=== PATIENT | male | born 1985 | race Two or more races ===

== ENCOUNTER 2023-04-20 01:44 | Emergency (ER) | payer MEDICAID, SELFPAY ==
--- NOTE | ~2023-04-20 | XR_ITS ---
EXAMINATION: XR CHEST CLINICAL INFORMATION: Pain. COMPARISON: None available. TECHNIQUE: Frontal view of the chest was obtained. FINDINGS: The cardiomediastinal silhouette is normal. There is no focal lung consolidation or pleural effusion. The bony structures and soft tissues are unremarkable. XR/XR chest 1V IMPRESSION: No active cardiopulmonary disease.
--- NOTE | 2023-04-20 01:45 | ECG_ITS ---
Test Reason : chest pain after using cocine Blood Pressure : / mmHG Vent. Rate : 104 BPM Atrial Rate : 104 BPM P-R Int : 160 ms QRS Dur : 078 ms QT Int : 346 ms P-R-T Axes : 082 080 048 degrees QTc Int : 454 ms Sinus tachycardia Possible Left atrial enlargement Borderline ECG No previous ECGs available Referred By: Generic ED Physician Electronically Signed By:LINDA BORJA
[2023-04-20 01:52] VITALS: BP 136/89; PULSE 102; RESP 18; TEMP 36.7; O2SAT 98; BMI 25.8
--- NOTE | 2023-04-20 02:27 | ED.CHESTPAIN ---
HPI - Chest Pain General Chief Complaint: Chest Pain Stated Complaint: CP after using Time Seen by Provider: 04/20/23 02:12 Source: patient and family Mode of arrival: ambulatory Limitations: no limitations History of Present Illness HPI narrative: 37 yo male no PMH started with L sided chest heaviness after sniffing cocaine - feels anxious mildy shortness of breath. Willard normal prior to this event. Has no known heart disease or issues. MD complaint: chest pain Onset (ago): hour(s) (1.5) Timing of current episode: constant Prior episodes: Yes Onset: during rest Pain location: left chest Pain radiation: none Severity: mild Quality: heaviness Relieving factors: nothing Exacerbating factors: other (cocaine use) Context: other (sniffed cocaine) Associated symptoms: dyspnea Treatment prior to arrival: none Related Data Allergies Allergy/AdvReac Type Severity Reaction Status Date / Time No Known Allergies Allergy Verified 04/20/23 01:51 Review of Systems Review of Systems: Constitutional : No Weight loss, No Fever, No Chills ENT/Mouth : No sore throat, No Rhinorrhea Eyes: No Eye Pain, No Swelling Cardiovascular : pos Chest Pain, pos SOB, no Dyspnea on Exertion, No Orthopnea, No Edema, No Palpitations Respiratory : No Cough, No Sputum Gastrointestinal : no Nausea, No Vomiting, No Diarrhea, No abdominal Pain, No Hematochezia, No Melena Genitourinary : No Dysuria, No Urinary Frequency Musculoskeletal : No joint pain, No Myalgias, No Joint Swelling Skin : No Skin Lesions, No rash Neuro : No Weakness, No Numbness, No Dizziness, No Headache Psych : pos Anxiety/Panic, No Depression All other systems reviewed and are negative [facility] Past Medical History Attestation statement: The following information was validated with the patient. Source: old records reviewed Medical History No pertinent past medical history Social History Social History Alcohol intake: current Alcohol intake frequency: holidays/special occasions only Smoked in Last 30 Days: Yes Use of substances other than those prescribed or required for medical reasons: Yes Substance Use Type: Crack/Cocaine Advance Directives: No Advance Directives Information Provided: No Physical Exam Vital Signs: Vital Signs: Last Vital Signs Temp 98.4 F 04/20/23 04:00 Pulse 75 04/20/23 04:00 Resp 16 04/20/23 04:00 BP 112/58 L 04/20/23 04:00 Pulse Ox 98 04/20/23 04:00 O2 Del Method Room Air 04/20/23 04:00 BMI result Body Mass Index 25.8 Appearance: Alert. Oriented X3. No acute distress. Eyes: Pupils equal, round and reactive to light. ENT: Pharynx normal. Neck: Normal inspection. Neck supple. CVS: Normal heart rate and rhythm. Pulses normal. Respiratory: No respiratory distress. Breath sounds normal. Abdomen: Soft and nontender. Skin: Skin warm and dry. Normal skin color. Normal skin turgor. Extremities: No lower extremity edema. No calf ttp Neuro: Oriented X 3. No motor deficit. No sensory deficit. Medications Administered Discontinued Medications Generic Name Dose Route Start Last Admin Trade Name Freq PRN Reason Stop Dose Admin Aspirin 162 mg 04/20/23 02:12 04/20/23 02:38 Aspirin 81 Mg Tab.Chew PO 04/20/23 02:13 162 mg ONCE ONE Administration Lorazepam 1 mg 04/20/23 02:12 04/20/23 02:38 Lorazepam 1 Mg Tablet PO 04/20/23 02:13 1 mg ONCE ONE Administration Medical Decision Making Medical Decision Making [facility] Narrative: 37 yo male with chest pain after sniffing cocaine he has no ACS risk factors he is not toxic appearing distal pulses intact and it does not go to chest doubt dissection. At this time will need labs, troponin x 2, CXR, PO ativan and aspirin. If negative stable for DC. He is aware he should stop using cocaine. Differential Diagnosis Differential Diagnoses: The differential diagnosis associated with the presentation includes chest pain, bronchospasm, MSK pain, coronary vasospasm Admission/Observation Consideration of admission/observation: Escalation of care including admission/observation considered EKG nonischemic trop flat x 2 stable for DC Lab Data [facility] Lab Attestation statement: I reviewed the patient's lab results. 04/20/23 02:28 04/20/23 02:28 Labs: Lab Results 04/20/23 04/20/23 Range/Units 02:28 04:08 WBC 11.6 H (4.8-10.8) X10*3/uL RBC 5.02 (4.60-5.80) X10*6/uL Hgb 15.0 (14.0-18.0) g/dl Hct 43.9 (42.0-52.0) % MCV 87.5 (80.0-98.0) fL MCH 29.9 (27.0-33.0) pg MCHC 34.2 (31.0-36.0) g/dl RDW 11.9 (11.0-16.0) % Plt Count 234 (160-400) X10*3/uL MPV 9.1 L (9.4-12.4) fL Immature Gran % (Auto) 0.2 (0.0-0.4) % Neut % (Auto) 70.3 (45-73) % Lymph % (Auto) 23.6 (20-40) % Murray % (Auto) 5.2 (2-11) % Eos % (Auto) 0.3 (0-4) % Baso % (Auto) 0.4 (0-2) % Lymph # (Auto) 2.7 (1.2-4.9) X10*3/uL Murray # (Auto) 0.6 (0.1-1.2) X10*3/uL Eos # (Auto) 0.0 (0.0-0.4) X10*3/uL Baso # (Auto) 0.1 (0.0-0.2) X10*3/uL Abs Immat Gran (auto) 0.02 (0.00-0.03) X10*3/uL Absolute Neuts (auto) 8.2 (2.0-8.3) x10*3/uL Absolute Nucleated RBC 0.000 (0.0-0.012) X10*3/uL Nucleated RBC % (auto) 0.0 (0.0-0.2) /100WBC Sodium 143 (135-145) mmol/L Potassium 3.9 (3.3-5.1) mmol/L Chloride 111 H (96-108) mmol/L Carbon Dioxide 21 L (22-29) mmol/L Anion Gap 15 (12-20) BUN 9 (9-16) mg/dL Creatinine 1.08 (0.5-1.4) mg/dL Estim Creat Clear Calc 98.5 Estimated GFR > 60 Random Glucose 106 (60-115) mg/dL Calcium 10.0 (8.4-10.2) mg/dL Total Bilirubin 0.7 (0.0-1.0) mg/dL AST 23 (5-37) U/L ALT 21 (0-40) U/L Alkaline Phosphatase 51 (39-117) U/L Troponin I High Sens < 2.7 < 2.7 (<3.5-35.0) ng/L Total Protein 7.8 (6.5-8.0) g/dL Albumin 4.3 (3.5-5.0) g/dL Independent Interpretation I performed an independent interpretation of an: EKG and Plain X-Ray (normal ) Interpretation: Rate: 104 Rhythm: sinus tachycardia [place]: normal Normal P waves. Normal AMY. Normal QRS complex. ST T wave : normal no CALVIN qTC: normal prior studies: no acute ischemia The study has been interpreted contemporaneously by me. . Radiology Impression Discussion of test interpretation with radiology: I have reviewed the radiologist's reading. Independent Historian Clinical information obtained from an independent historian. History obtained from or confirmed by: Spouse Discharge Plan Discharge Clinical Impression: Atypical chest pain, Cocaine abuse Patient Disposition: Home, Self-Care Instructions: Chest Pain (ED), Cocaine Abuse (ED) Additional Instructions: return for worsening pain, dyspnea, fainting, fevers or any other concerns. stop using cocaine it can cause heart attacks, strokes, heart failure and other medical issues. Stand Alone Forms: Work/School Release
[2023-04-20 02:31] LABS: MANUAL DIFF FLAG NO
[2023-04-20 02:33] LABS: Basophils Absolute Auto 0.1 X10*3/uL (0.0-0.2); Basophils Percent Auto 0.4 % (0-2); Eosinophils Percent Auto 0.3 % (0-4); Hematocrit 43.9 % (42.0-52.0); Imm Gran Abs Auto 0.02 X10*3/uL (0.00-0.03); Imm Gran Pct Auto 0.2 % (0.0-0.4); Lymphocytes Absolute Auto 2.7 X10*3/uL (1.2-4.9); Lymphocytes Percent Auto 23.6 % (20-40); Mean Corpuscular HGB Conc 34.2 g/dl (31.0-36.0); Mean Corpuscular Hemoglobin 29.9 pg (27.0-33.0); Mean Corpuscular Volume 87.5 fL (80.0-98.0); Mean Platelet Volume 9.1 fL (9.4-12.4); Monocytes Absolute Auto 0.6 X10*3/uL (0.1-1.2); Monocytes Percent Auto 5.2 % (2-11); Neutrophils Absolute Auto 8.2 x10*3/uL (2.0-8.3); Neutrophils Percent Auto 70.3 % (45-73); Platelet Count 234 X10*3/uL (160-400); Red Blood Count 5.02 X10*6/uL (4.60-5.80); Red Cell Distribution Width 11.9 % (11.0-16.0); White Blood Count 11.6 X10*3/uL (4.8-10.8)
[2023-04-20] MEDS: LORazepam 1 MG TABLET PO (02:38)
[2023-04-20] MEDS: Aspirin 81 MG TAB.CHEW 162 MG PO (02:38)
[2023-04-20 02:54] LABS: Alanine Aminotransferase 21 U/L (0-40); Albumin Level 4.3 g/dL (3.5-5.0); Alkaline Phosphatase 51 U/L (39-117); Anion Gap 15 (12-20); Aspartate Amino Transferase 23 U/L (5-37); Bilirubin Total 0.7 mg/dL (0.0-1.0); Blood Urea Nitrogen 9 mg/dL (9-16); Carbon Dioxide 21 mmol/L (22-29); Chloride 111 mmol/L (96-108); Creatinine Clr Calc Pharmacy 98.5; Estimated Glomerular Filt Rate > 60; Glucose Random 106 mg/dL (60-115); Potassium 3.9 mmol/L (3.3-5.1); Sodium 143 mmol/L (135-145); Total Protein 7.8 g/dL (6.5-8.0); Troponin-I High Sensitivity < 2.7 ng/L (<3.5-35.0)
--- NOTE | 2023-04-20 03:26 | PC.NURSE ---
Pt ambulated independently from W/R with steady gait. Pt A&Ox4, reports 5/10 constant left sided CP, non radiating, states it feels like squeezing after more then usual cocaine use at 2340 last night. Pt placed on bedside monitor, labs collected and sent to lab. Pt aware of plan.
[2023-04-20 04:00] VITALS: BP 112/58; PULSE 75; RESP 16; TEMP 36.9; O2SAT 98
[2023-04-20 04:32] LABS: Troponin-I High Sensitivity < 2.7 ng/L (<3.5-35.0)
[2023-04-20 04:41] VITALS: BP 110/55; PULSE 71; RESP 14; O2SAT 96
== END 2023-04-20 04:43 | disposition home or self-care (01) ==
PROVIDERS: Emergency Provider Emergency Medicine
DX: R07.89 Other chest pain (principal); F14.10 Cocaine abuse, uncomplicated; R06.02 Shortness of breath
CPT/HCPCS: 36415; 71045; 80053; 84484; 85025; 93005; 99283; 99284

== ENCOUNTER 2025-05-13 11:46 | Outpatient (REF) | payer MEDICAID, SELFPAY ==
[2025-05-13 13:28] LABS: MANUAL DIFF FLAG NO
[2025-05-13 13:53] LABS: Hematocrit 43.4 % (42.0-52.0); Hemoglobin 14.9 g/dl (14.0-18.0); Imm Gran Abs Auto 0.02 X10*3/uL (0.00-0.03); Imm Gran Pct Auto 0.2 % (0.0-0.4); Lymphocytes Absolute Auto 2.7 X10*3/uL (1.2-4.9); Mean Corpuscular HGB Conc 34.3 g/dl (31.0-36.0); Mean Corpuscular Hemoglobin 29.9 pg (27.0-33.0); Mean Corpuscular Volume 87.0 fL (80.0-98.0); NRBC Abs Auto 0.000 X10*3/uL (0.0-0.012); NRBC Pct Auto 0.0 /100WBC (0.0-0.2); Platelet Count 230 X10*3/uL (160-400); Red Blood Count 4.99 X10*6/uL (4.60-5.80); White Blood Count 8.1 X10*3/uL (4.8-10.8)
[2025-05-13 14:42] LABS: Anion Gap 11 (12-20); Blood Urea Nitrogen 18 mg/dL (9-16); Calcium 9.4 mg/dL (8.4-10.2); Carbon Dioxide 28 mmol/L (22-29); Chloride 108 mmol/L (96-108); Estimated Glomerular Filt Rate > 60; Potassium 4.0 mmol/L (3.3-5.1); Sodium 143 mmol/L (135-145)
[2025-05-14 08:28] LABS: HBS Num1 202.03 mIU/mL (0-7.99); HBc Num1 0.08 S/CO (0.00-0.79); HBsAGNum1 0.37 S/CO (0.00-0.99); HIV Num 1 0.06 S/CO (0.00-0.99); Hepatitis B Surface Antigen Negative (Negative); ~HepC Num1 0.07 S/CO (0.00-0.79); ~Hepatitis B Surface Antibody REACTIVE (Nonreactive); ~Hepatitis C Antibody Nonreactive (Nonreactive)
[2025-05-15 13:13] LABS: Rapid Plasma Reagin Ab Titer 1:8
[2025-05-16 08:12] LABS: TS Negative Control Passed; TS Panel A 0; TS Panel B 0; TS Positive Control Passed; TSpotTB Negative (Negative)
[2025-05-16 08:26] LABS: ~Hepatitis A Antibody IgG 10.09 S/CO (0.00-0.99)
== END 2025-05-13 11:47 | disposition home or self-care (01) ==
LOC: HO.HHCL 11:46
PROVIDERS: PCP Emergency Medicine; Visit Provider Emergency Medicine
DX: F11.20 Opioid dependence, uncomplicated (principal); Z11.4 Encounter for screening for human immunodeficiency virus [HIV]; Z11.59 Encounter for screening for other viral diseases; Z11.1 Encounter for screening for respiratory tuberculosis; Z11.3 Encounter for screening for infections with a predominantly sexual mode of transmission
CPT/HCPCS: 36415; 80048; 85025; 86481; 86592; 86593; 86704; 86706; 86708; 86803; 87340; 87389

== ENCOUNTER 2025-06-10 13:37 | Outpatient (REF) | payer MEDICAID, SELFPAY ==
--- OUTSIDE RECORDS SUMMARY | 2025-06-10 13:30 | XMS_ITS | Encounter Summary ---
Author Organization [employer] Address [address] [facility] [address] [place] [address] Care Team Providers Care Hospital Sales Representative Name Role Phone Unavailable Primary Care Provider Unavailabl e Reason for Visit * Reason Comments OBAT TEL Encounter Details Date Type Department Care Team (Latest Contact Info) Description 06/10/2025 1:30 PM EST Telemedicine [facility] [address], [place] [phone] Vidal Carlton MD [address] [place] [address] Uncomplicated opioid dependence (CMS/HCC) (HCC) (Primary Dx) Social History Tobacco Use Types Packs/Day Years Used Date Smoking Tobacco: Every Day Cigarettes Smokeless Tobacco: Never Alcohol Use Standard Drinks/Week Comments Not Currently 0 (1 standard drink = 0.6 oz pur e alcohol) Depression Answer Date Recorded Patient Health Questionnaire-9 Score 5 05/05/2025 Patient Health Questionnaire-9 Score 5 05/05/2025 Last PHQ-9: Questionnaire Data Not on file 0 05/05/2025 Housing Stability Answer Date Recorded What is your housing situation today? I have gloria bauer 04/17/[address] you li ve. Do you have problems with any of the following? None of the above 04/17/2025 Food Insecurity Answer Date Recorded Within the past 12 months, y ou worried that your food would run out before you got money to buy more: Never True 04/17/2025 Within the past 12 months,th e food you bought just didn't last and you didn't have enough money to get more: Never True 06/2025 Transportation Answer Date Recorded In the past 12 months, has l ack of transportation kept you from medical appts, meetings, work or from getting things needed for daily living? No 04/17/2025 Utilities Answer Date Recorded In the past 12 months, has t he electric, gas, oil or water company threatened to shut off services in your home? No 04/17/2025 Depression Answer Date Recorded Patient Health Questionnaire-2 Score 2 05/05/2025 Internet Access Answer Date Recorded Internet Access Q1 No 04/17/2025 Internet Access Q2 Not on file 04/17/2025 Sex and Gender Information Value Date Recorded Sex Assigned at Male 04/16/2025 11:44 AM EDT Legal Sex Male 10:33 AM EST Gender Identity Male 04/16/2025 11:44 AM EDT Sexual Orientation Straight 04/16/2025 11 :47 AM EDT documented as of this encounter Progress Notes * Vidal Carlton MD - 06/10/2025 1:30 PM EST Subjective Patient ID: Ramone Abreu is a 39 y.o. male. HPI Patient here today for Opioid Dependence RV. Current medication: Sublocade 300 mg q 28 days, received 1st dose 04/29/2025, 2nd dose was 05/27/2025. On 2 week schedule, will increase visit interval to 4 weeks schedule next visit on June 24, 2025. Patient has been in the program for 7 weeks. Induction date: 04/17/25 LFTs done 05/13/2025 Therapist Miguel Ángel, referred to [facility] in [place]. ADELFO FRASER reviewed by provider. Nancy speaking with recovery engineer today. [facility] reviewed. Last use nasal heroin February 2025 Last used nasal cocaine February, Street oxycodone: Last used February, Smokes 5 cigarettes/day. Declines NRT, Had lab tests done on May 13, had positive RPR 1: 8. All other labs were normal. LFTs were drawn today. Doing well on Sublocade. No constipation. States was treated for syphilis at [facility] [address] in [place] several months ago. We called them and he was given Penicillin 2.4 million units IM 06/13/2024, Had RPR 1:64 on 06/2024. We contacted Melissa Steiner from [place] [facility] about whether 1 dose of IM penicillin was sufficient (early latent vs late latent syphilis), and she confirmed that 1 dose was indicated. Lives in [facility] in [place]. No Children Smokes 5 cigarettes/day. Declines NRT. The following portions of the chart were reviewed this encounter and updated as appropriate: Tobacco Allergies Meds Problems Med Hx Surg Hx Fam Hx Review of Systems Constitutional: Negative for fever. Respiratory: Negative for shortness of breath. Cardiovascular: Negative for chest pain. Gastrointestinal: Negative for abdominal pain. Skin: Negative for rash. Neurological: Negative for headaches. Objective Physical Exam Procedures Assessment/Plan Diagnoses and all orders for this visit: Uncomplicated opioid dependence (CMS/HCC) (HCC) Recovery support, harm reduction (including Narcan) and behavioral health attendance reviewed. Continue Sublocade, will decrease dose to 100 mg at next visit (3rd dose of Sublocade) in 2 weeks. Will increase visit interval to 4 weeks schedule starting next visit. Has Narcan. documented in this encounter Plan of Treatment Upcoming Encounters Date Type Department Care Team (Late st Contact Info) Description 06/24/2025 1:30 PM EST Office Visit [facility] [address] [place] [address] Vidal Carlton MD [address] [place] [address] documented as of this encounter Visit Diagnoses Diagnosis Uncomplicated opioid dependence (CMS/HCC) (HCC)- Primary documented in this encounter Additional Health Concerns Assessment Noted Time PHQ-9 Depression Total Score: 5 05/05/20 25 2:17 PM EDT documented as of this encounter
[2025-06-10 16:38] LABS: Alanine Aminotransferase 27 U/L (0-40); Albumin Level 4.8 g/dL (3.5-5.0); Alkaline Phosphatase 63 U/L (39-117); Aspartate Amino Transferase 35 U/L (5-37); Total Protein 7.7 g/dL (6.5-8.0)
--- OUTSIDE RECORDS SUMMARY | 2025-06-10 16:40 | XMS_ITS | Encounter Summary ---
Author Organization [employer] Address [address] [facility] [address] [place] [address] Care Team Providers Care Permit Technician Name Role Phone Unavailable Primary Care Provider Unavailabl e Encounter Details Date Type Department Care Team (Latest Contact Info) Description 06/10/2025 Travel Social History Tobacco Use Types Packs/Day Years [...] AM EDT documented as of this encounter Plan of Treatment Upcoming Encounters Date Type Department Care Team (Late st Contact Info) Description 06/24/2025 1:30 PM EST Office Visit [facility] [address] [place] [address] Vidal Carlton MD [address] [place] [phone] documented as of this encounter Visit Diagnoses Not on filedocumented in this encounter Additional Health Concerns Assessment Noted Time PHQ-9 Depression Total Score: 5 05/05/20 25 2:17 PM EDT documented as of this encounter
--- OUTSIDE RECORDS SUMMARY | 2025-06-10 16:40 | XMS_ITS | Clinical Summary ---
Author Organization [facility] Address [address] [place] [address] Phone Care Team Providers Care Belt Sander Stone Name Role Phone Physician, Pcp Unknown Primary Care Provider Nohemy vailable Allergies No known active allergies Medications lidocaine (LIDODERM) 5 % patch Apply 1 patch topically 1 (one) time each day. Remove & discard patch within 12 hours or as directed by MD. 30 each 5 06/24/20 25 Active cyclobenzaprine (FLEXERIL) 10 mg tablet Take 1 tablet (10 mg total) by mouth 3 (three) times a day if needed for muscle spasms for up to 10 days. 15 tablet 5 Active ketorolac (TORADOL) 10 mg tablet Take 1 tablet (10 mg total) by mouth every 6 (six) hours if needed for moderate pain for up to 5 days. 20 tablet 5 05/30/20 25 Encounters Date Type Department Care Team Description 05/25/2025 6:42 PM EDT - 05/25/2025 8:38 PM EDT Emergency [facility] [address] [place] [address] Lumbar strain, initial encounter (Primary Dx) Discharge Disposition: Home or Self Care from Last 3 Months Medical History Medical History Date Comments No known health problems Social History Tobacco Use Types Packs/Day Years Used Date Smoking Tobacco: Every Day Cigarettes Smokeless Tobacco: Never Tobacco Cessation:Ready to Q uit: Not Asked; Counseling Given: Not Answered Sex and Gender Information Value Date Recorded Sex Assigned at Not on file Legal Sex Male 6:16 PM EDT Gender Identity Not on file Sexual Orientation Not on file Obstetrics History Last Filed Vital Signs Vital Sign Reading Time Taken Comments Blood Pressure 115/64 05/25/2025 6:21 PM EDT Pulse 60 05/25/2025 6:21 PM EDT Temperature 36.7 C (98.1 F) 05/25/2025 6:21 PM EDT Respiratory Rate 16 05/25/2025 6:21 PM EDT Oxygen Saturation 99% 05/25/2025 6:21 PM EDT Inhaled Oxygen Concentration - - Weight 97.5 kg (215 lb) 05/25/2025 6:18 PM EDT Height 177.8 cm (5' 10 ) 05/25/2025 6:18 PM EDT Body Mass Index 30.85 05/25/2025 6:18 PM EDT Plan of Treatment Health Maintenance Due Date Last Done Comments DTaP,Tdap,and Td Vaccines (1 - Tdap) 2006 Pneumococcal Vaccine: Pediatrics (0 to 5 Years) and At-Risk Patients (6 to 49 Years) (1 of 2 - PCV) 2006 HPV Vaccines (1 - 3-dose SCD M series) 2014 Hepatitis A Vaccines (3 of 3 - Risk Twinrix secondary 3-dose series) 02/19/2018 09/22/2017, 09/26/2016 Depression Screening 08/07/2024 COVID-19 Vaccine (1 - 2023-2 5 season) 2025 Influenza Vaccine (#1) 2025 Cholesterol Screening (Lipid Panel) 05/25/2025 Social Influencers of Health Screening 05/25/2025 RSV Immunization Adult Patients (1 - 1-dose 75+ series) 2062 MMR Vaccines Aged Out 09/26/2016 No longer eligi ble based on patient's age to complete this topic Hepatitis B Vaccines Completed 09/22/2017, 10/25/2016, 09/26/2016 HIV Screening Completed 05/13/2025 Hepatitis C Screening Completed 05/13/2025 HIB Vaccines Aged Out No longer eligi ble based on patient's age to complete this topic IPV Vaccines Aged Out No longer eligi ble based on patient's age to complete this topic Meningococcal ACWY Vaccine Aged Out N o longer eligible based on patient's age to complete this topic Meningococcal B Vaccine Aged Out No l onger eligible based on patient's age to complete this topic RSV Immunization Patients Under 20 months Aged Out No longer eligible b ased on patient's age to complete this topic Varicella Vaccines Aged Out No longer eligible based on patient's age to complete this topic Procedures Procedure Name Priority Date/Time Associated Diagnosis Comments XR LUMBAR SPINE 2-3 VIEWS STAT 05/25/2025 7:40 PM EDT from Last 3 Months Results * XR Lumbar Spine 2-3 Views (05/25/2025 7:40 PM EDT) Anatomical Region Laterality Modality Spine, L-spine Radiographic Sveta ging 05/26/2025 8:42 AM EDT Impressions 05/26/2025 8:43 AM EDT FINDINGS/IMPRESSION: Lumbar alignment is within normal limits. No fracture. Degenerative loss of disc space height with endplate spurring at T12-L1 and T11- 12. Prominent left L5-S1 facet arthritis. -------- FINAL REPORT -------- Dictated By: HOLLY LIU Dictated Date: 05/26/2025 08:42 ET Assigned Physician: HOLLY LIU Reviewed and Electronically Signed By: HOLLY LIU Signed Date: 05/26/2025 08:43 ET Workstation ID: [id number] Transcribed By: Self Edit Transcribed Date: 05/26/2025 08:42 ET Narrative 05/26/2025 8:43 AM EDT XR LUMBAR SPINE 2-3 VIEWS INDICATION: Pain TECHNIQUE: XR LUMBAR SPINE 2-3 VIEWS COMPARISON: No priors available. Procedure Note Holly Liu MD - 05/26/2025 XR LUMBAR SPINE 2-3 VIEWS INDICATION: Pain TECHNIQUE: XR LUMBAR SPINE 2-3 VIEWS COMPARISON: No priors available. IMPRESSION: FINDINGS/IMPRESSION: Lumbar alignment is within normal limits. Nofracture. Degenerative loss of disc space height with endplate spurringat T12-L1 and T11- 12. Prominent left L5-S1 facet arthritis. -------- FINAL REPORT -------- Dictated By: HOLLY LIU Dictated Date: 05/26/2025 08:42 ET Assigned Physician: HOLLY LIU Reviewed and Electronically Signed By: HOLLY LIU Signed Date: 05/26/2025 08:43 ET Workstation ID: [id number] Transcribed By: Self Edit Transcribed Date: 05/26/2025 08:42 ET Macario CHAMPAGNE IMG XR PROCEDURES Final Res ult from Last 3 Months Insurance MEDICAID - [place] Care Teams Belt Sander Stone Relationship Specialty Start Date End Date Physician, Pcp Unknown PCP - General 05/25/25
--- OUTSIDE RECORDS SUMMARY | 2025-06-10 16:41 | XMS_ITS | Clinical Summary ---
Author Organization [employer] Address [address] [facility] [address] [place] [address] Care Team Providers Care Scratcher Name Role Phone Unavailable Primary Care Provider Unavailabl e Allergies No known active allergies Medications * This document contains information received from the source organization and may not represent a complete record from that organization. buprenorphine ER (Sublocade) 300 mg/1.5mL injectionIndic ations:Uncompl icated opioid dependence (CMS/HCC) (HCC) Inject 1.5 mL (1 each) under the skin every month to absorb continually . 1.5 mL 1 04/22/20 25 025 Active hydrOXYzine HCl (Atarax) 25 MG tabletIndicati ons:Uncomplica nitin opioid dependence (CMS/HCC) (HCC) Take 1 tablet (25 mg) by mouth if needed at bedtime for anxiety (insomnia). 30 tablet 1 05/27/20 25 Active buprenorphine ER (Sublocade) 100 mg/0.5mL injectionIndic ations:Uncompl icated opioid dependence (CMS/HCC) (HCC) Inject 0.5 mL (1 each) under the skin every month to absorb continually . 0.5 mL 5 06/10/20 25 026 Active hydrOXYzine HCl (Atarax) 25 MG tabletIndicati ons:Uncomplica nitin opioid dependence (CMS/HCC) (HCC) Take 1 tablet (25 mg) by mouth if needed at bedtime (insomnia). 30 tablet 04/17/20 25 025 Discontinued(Re order (will not trigger notification to Pharmacy)) Hospital, Clinic, or Other Facility Administered Medication Ordered Dose Route Frequency Start Date End Date Status buprenorphine ER (Sublocade) 300 mg/1.5mL injection 1 eachIndications:Unc omplicated opioid dependence (CMS/HCC) (HCC) 1 each SC Over 1 month 05/27/2025 05/27/2025 Ended buprenorphine ER (Sublocade) 100 mg/0.5mL injection 1 eachIndications:Unc omplicated opioid dependence (CMS/HCC) (HCC) 1 each SC Over 1 month 06/10/2025 06/10/2025 Discont inued Active Problems Problem Noted Date Diagnosed Date Syphilis in male 06/10/2025 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 Date Type Department Care Team Description 06/10/2025 1:30 PM EST Telemedicine [address] [address] Vidal Carlton MD Uncomplicated opioid dependence (CMS/HCC) (HCC) (Primary Dx) 06/10/2025 Travel 06/03/2025 Patient Outreach [address] [address] Avery Rivera [facility] Supports 05/27/2025 1:45 PM EDT Office Visit [address] [address] Vidal Carlton MD Uncomplicated opioid dependence (CMS/HCC) (HCC) (Primary Dx) 05/27/2025 Travel 05/20/2025 10:30 AM EDT Clinical Support [address] [address] Jennifer Rodarte RN Opioid type dependence, continuous (CMS/HCC) (HCC) (Primary Dx) 05/20/2025 Patient Outreach [address] [address] Avery Rivera [facility] 05/20/2025 Travel 05/13/2025 11:15 AM EDT Office Visit [address] [address] Cuba Rebollar MD Uncomplicated opioid dependence (CMS/HCC) (HCC) (Primary Dx); Tobacco use disorder 05/13/2025 Travel 05/06/2025 11:15 AM EDT Office Visit [address] [address] Cuba Rebollar MD Uncomplicated opioid dependence (CMS/HCC) (Primary Dx); Tobacco use disorder 05/06/2025 Patient Outreach [address] [address] JoselAec Recovery Supports 05/06/2025 Patient Outreach [address] [address] Mike Olivas Recovery Supports 05/06/2025 Travel 04/29/2025 11:00 AM EDT Office Visit [address] [address] Cuba Rebollar MD Uncomplicated opioid dependence (CMS/HCC) (Primary Dx); Tobacco use disorder 04/29/2025 Travel 04/22/2025 10:45 AM EDT Office Visit [address] [address] Cuba Rebollar MD Uncomplicated opioid dependence (CMS/HCC) (Primary Dx); Tobacco use disorder; Other depression 04/22/[address] [address] Jennifer Rodarte RN Uncomplicated opioid dependence (CMS/HCC) (Primary Dx) 04/22/2025 Travel 04/17/2025 2:30 PM EDT Office Visit [address] [address] Eveline Werner MD Uncomplicated opioid dependence (CMS/HCC) (Primary Dx) 04/17/2025 1:00 PM EDT Office Visit [address] [address] Doreen Dawkins, KLEBER Uncomplicated opioid dependence (CMS/HCC) 04/17/2025 Travel 04/16/2025 Patient Outreach [address] [address] Alejandro Singletary Recovery Supports from Last 3 Months Immunizations Immunization Administration Dates Next Due Hep A / Hep B 09/22/2017 Hep A, Adult 09/26/2016 Hep B, adult 10/25/2016,09/26/2016 MMR 09/26/2016 Social History Tobacco Use Types Packs/Day Years Used Date Smoking Tobacco: Every Day Cigarettes Smokeless Tobacco: Never Tobacco Cessation:Ready to Q uit: Not Asked; Counseling Given: Not Answered Alcohol Use Standard Drinks/Week Comments Not Currently [...] Orientation Straight 04/16/2025 11 :47 AM EDT Last Filed Vital Signs Vital Sign Reading Time Taken Comments Blood Pressure 122/77 04/17/2025 1:51 PM EDT Pulse 63 04/17/2025 1:51 PM EDT Temperature 36.2 C (97.2 F) 04/17/2025 1:51 PM EDT Respiratory Rate - - Oxygen Saturation - - Inhaled Oxygen Concentration - - Weight - - Height - - Body Mass Index - - Plan of Treatment Upcoming Encounters Date Type Department Care Team (Late st Contact Info) Description 06/24/2025 1:30 PM EST Office Visit [facility] [address] [place] [address] Vidal Carlton MD [address] [place] [address] Health Maintenance Due Date Last Done Comments Lipid Panel 1987 Disability Screening 1987 Family Planning (PISQ) 2002 HPV Vaccines (1 - Male 3-dos e series) 2002 DTaP/Tdap/Td Vaccines (1 - Tdap) 2006 Pneumococcal Vaccine: Pediatrics (0 to 5 Years) and At-Risk Patients (6 to 49) Years (1 of 2 - PCV) 2006 COVID-19 Vaccine (1 - 2023-2 5 season) 2025 Influenza Vaccine (#1) 2025 Alcohol/Substance Use Screening 04/17/2026 04/17/2025 SDOH Screening 04/17/2026 04/17/2025 Depression Screening 05/05/2026 05/05/2025, 05/05/2025 Tobacco Screening 06/10/2026 06/10/2025 Zoster Vaccines (1 of 2) 2037 RSV Patients and Patients Aged 60 years or older (1 - 1-dose 75+ series) 2062 Hepatitis A Vaccines Aged Out 09/22/2017, 09/26/2016 No longer eligible based on patient's age [...] patient's age to complete this topic Meningococcal Vaccine Aged Out No shayla elissa eligible based on patient's age to complete this topic RSV under 20 months Aged Out No longe r eligible based on patient's age to complete this topic Rotavirus Vaccines Aged Out No longer eligible based on patient's age to complete this topic Procedures Procedure Name Priority Date/Time Associated Diagnosis Comments HEPATIC FUNCTION PANEL Routine 06/10/2025 1:51 PM EST Uncomplicated opioid dependence (CMS/HCC) (HCC) POCT CHET-14 URINE DRUG SCREEN Routine 05/27/2025 2:17 PM EDT Uncomplicated opioid dependence (CMS/HCC) (HCC) POCT CHET-14 URINE DRUG SCREEN Routine 05/20/2025 9:39 AM EDT Opioid type dependence, continuous (CMS/HCC) (HCC) RPR (MONITOR) W/REFL TITER Routine 05/13/2025 11:55 AM EDT Uncomplicated opioid dependence (CMS/HCC) (HCC) HEPATITIS A ANTIBODY, TOTAL Routine 05/13/2025 11:55 AM EDT Uncomplicated opioid dependence (CMS/HCC) (HCC) HEPATITIS B SURFACE ANTIGEN, EIA Routine 05/13/2025 11:55 AM EDT Uncomplicated opioid dependence (CMS/HCC) (HCC) HEPATITIS B CORE AB TOTAL Routine 05/13/2025 11:55 AM EDT Uncomplicated opioid dependence (CMS/HCC) (HCC) HEPATITIS B SURFACE ANTIBODY, QUALITATIVE Routine 05/13/2025 11:55 AM EDT Uncomplicated opioid dependence (CMS/HCC) (HCC) HIV 1/2 ANTIGEN/ANTIBODY, FOURTH GENERATION W/RFL Routine 05/13/2025 11:55 AM EDT Uncomplicated opioid dependence (CMS/HCC) (HCC) BASIC METABOLIC PANEL Routine 05/13/2025 11:55 AM EDT Uncomplicated opioid dependence (CMS/HCC) (HCC) T-SPOT(R).TB Routine 05/13/2025 11:55 AM EDT Uncomplicated opioid dependence (CMS/HCC) (HCC) CBC WITH AUTO DIFFERENTIAL Routine 05/13/2025 11:55 AM EDT Uncomplicated opioid dependence (CMS/HCC) (HCC) HEPATITIS C AB W/REFL TO HCV RNA, QN, PCR Routine 05/13/2025 11:55 AM EDT Uncomplicated opioid dependence (CMS/HCC) (HCC) POCT CHET-14 URINE DRUG SCREEN Routine 05/13/2025 11:03 AM EDT Uncomplicated opioid dependence (CMS/HCC) (HCC) POCT CHET-14 URINE DRUG SCREEN Routine 05/06/2025 11:19 AM EDT Uncomplicated opioid dependence (CMS/HCC) POCT CHET-14 URINE DRUG SCREEN Routine 04/29/2025 10:08 AM EDT Uncomplicated opioid dependence (CMS/HCC) POCT CHET-14 URINE DRUG SCREEN Routine 04/22/2025 10:02 AM EDT Uncomplicated opioid dependence (CMS/HCC) POCT CHET-14 URINE DRUG SCREEN Routine 04/17/2025 1:51 PM EDT Uncomplicated opioid dependence (CMS/HCC) from Last 3 Months Results * (ABNORMAL) Hepatic Function Panel (06/10/2025 1:51 PM EST) Bilirubin, Total 1.4(H) 0.0 - 1.0 mg/dL [facility] Bilirubin, Direct 0.4 0.0 - 0.5 mg/dL [facility] Aspartate Amino Transferase 35 5 - 37 U/L [facility] Alanine Aminotransferase 27 0 - 40 U/L [facility] Total Protein 7.7 6.5 - 8.0 g/dL [facility] Albumin Level 4.8 3.5 - 5.0 g/dL [facility] Alkaline Phosphatase 63 39 - 117 U/L [facility] Blood Venous blood specimen / Unknown 06/10/2025 1:51 PM EST 06/10/2025 4:09 PM EST us Vidal Carlton MD LAB BLOOD ORDERABLES Final Resul t [facility] [address] [place] [phone] * (ABNORMAL) POCT CHET-14 Urine Drug Screen (05/27/2025 2:17 PM EDT) Only the most recent of7 resultswithin the time period is included. THC Negative Negative Cocaine Screen, Urine Negative Negative Opiate Screen, Urine Negative Negative Methamphetamine Screen Urine Negative Negative Amphetamine Screen, Urine Negative Negative Benzodiazepines Screen, Urine Negative Negative Barbiturate Screen, Urine Negative Negative Methadone Screen, Urine Negative Negative Buprenophine Screen, Urine Positive(A) Negative TCA, Urine Positive(A) Negative MDMA Urine Negative Negative ng/mL Oxycodone Screen, Urine Negative Negative Phencyclidine (PCP), Urine Negative Negative Fentanyl, Urine Negative Negative Urine Urine specimen obtained by clean catch procedure / Unknown 05/27/2025 2:17 PM EDT us Vidal Carlton MD POINT OF CARE TEST ENTER/EDIT OR DERABLES Final Result * T-SPOT??.TB (05/13/2025 11:55 AM EDT) T Spot TB Negative Negative [facility] Comment:A negative test resu lt does not exclude the possibilityof exposure to or infection with Mycobacteriumtuberculosis (M. tuberculosis). Patients with recentexposure to TB infected individuals exhibiting anegative T-SPOT.TB result should be considered forretesting within 6 weeks or if other relevant clinicalsymptoms indicate. Results from T-SPOT.TB testing mustbe used in conjunction with each individual'sepidemiological history, current medical status,and results of other diagnostic evaluations.The T-SPOT.TB test is qualitative and results arereported as positive, borderline, or negative, giventhat the test controls perform as expected. In linewith the Centers for Disease Control and Prevention's2010 recommendation to report quantitative measurementsalongside the qualitative result, the laboratoryprovides spot counts for informational purposes only.The T-SPOT.TB test should not be interpreted as aquantitative test. TS PANEL A 0 [facility] TS PANEL B 0 [facility] Negative Control Passed [facility] Positive Control Passed [facility] Comment:For additional infor mataram, please refer [email or web address] [email or web address]/faq/[email or web address](This link is being provided for informational/educational purposes only.)THIS TEST WAS PERFORMED AT:[employer] [id number] [place] [id number] CARLSO SORENSON MD,PHD 05/13/2025 11:5 5 AM EDT 05/13/2025 1:26 PM EDT us Cuba Rebollar MD LAB BLOOD ORDERABLES Final Res ult [facility] [address] [place] [phone] * CBC auto differential (05/13/2025 11:55 AM EDT) White Blood Count 8.1 4.8 - 10.8 X10*3/uL [facility] Red Blood Count 4.99 4.60 - 5.80 X10*6/uL [facility] Hemoglobin 14.9 14.0 - 18.0 g/dl [facility] Hematocrit 43.4 42.0 - 52.0 % [facility] Mean Corpuscular Volume 87.0 80.0 - 98.0 fL [facility] Mean Corpuscular Hemoglobin 29.9 27.0 - 33.0 pg [facility] Mean Corpuscular HGB Conc 34.3 31.0 - 36.0 g/dl [facility] Red Cell Distribution Width 12.8 11.0 - 16.0 % [facility] Platelet Count 230 160 - 400 X10*3/uL [facility] Mean Platelet Volume 10.0 9.4 - 12.4 fL [facility] Neutrophils Percent Auto 58.7 45 - 73 % [facility] Imm Gran Pct Auto 0.2 0.0 - 0.4 % [facility] Lymphocytes Percent Auto 33.5 20 - 40 % [facility] Monocytes Percent Auto 6.3 2 - 11 % [facility] Eosinophils Percent Auto 0.7 0 - 4 % [facility] Basophils Percent Auto 0.6 0 - 2 % [facility] NRBC Pct Auto 0.0 0.0 - 0.2 /100WBC [facility] Neutrophils Absolute Auto 4.7 2.0 - 8.3 x10*3/uL [facility] Imm Gran Abs Auto 0.02 0.00 - 0.03 X10*3/uL [facility] Lymphocytes Absolute Auto 2.7 1.2 - 4.9 X10*3/uL [facility] Monocytes Absolute Auto 0.5 0.1 - 1.2 X10*3/uL [facility] Eosinophils Absolute Auto 0.1 0.0 - 0.4 X10*3/uL [facility] Basophils Absolute Auto 0.1 0.0 - 0.2 X10*3/uL [facility] NRBC Abs Auto 0.000 0.0 - 0.012 X10*3/uL [facility] Blood Venous blood specimen / Unknown 05/13/2025 11:55 AM EDT 05/13/2025 1:26 PM EDT us Cuba Rebollar MD LAB BLOOD ORDERABLES Final Res ult [facility] [address] [place] [phone] * Hepatitis C Antibody with Reflex to HCV, RNA, Quantitative, Real-Time PCR (05/13/2025 11:55 AM EDT) Hepatitis C Antibody Nonreactive Nonreactive [facility] Comment:Antibodies to HCV no t detected; does not exclude early acuteHCV infection. Blood Venous blood specimen / Unknown 05/13/2025 11:55 AM EDT 05/13/2025 1:28 PM EDT us Cuba Rebollar MD LAB BLOOD ORDERABLES Final Res ult Performing Organization Address [facility] Co de Phone Number [facility] [address] [place] [phone] * Hepatitis A Antibody, Total (05/13/2025 11:55 AM EDT) Hepatitis A Antibody IgG REACTIVE Nonreactive [facility] Comment:The presence of IgG anti-HAV implies past HAV infection(recent or distant) or vaccination against HAV. Blood Venous blood specimen / Unknown 05/13/2025 11:55 AM EDT 05/13/2025 1:28 PM EDT Cuba Rebollar MD LAB BLOOD ORDERABLES Final Res ult Performing Organization Address [facility] Co de Phone Number [facility] [address] [place] [phone] * Hepatitis B surface antigen, EIA (05/13/2025 11:55 AM EDT) Hepatitis B Surface Ag Negative Negative [facility] Blood Venous blood specimen / Unknown 05/13/2025 11:55 AM EDT 05/13/2025 1:28 PM EDT Cuba Rebollar MD LAB BLOOD ORDERABLES Final Res ult Performing Organization Address [facility] Co de Phone Number [facility] [address] [place] [phone] [phone] * Hepatitis B Core Antibody, Total (05/13/2025 11:55 AM EDT) Hepatitis B Core Antibody Nonreactive Nonreactive [facility] Blood Venous blood specimen / Unknown 05/13/2025 11:55 AM EDT 05/13/2025 1:28 PM EDT us Cuba Rebollar MD LAB BLOOD ORDERABLES Final Res ult Performing Organization Address [facility] Co de Phone Number [facility] [address] [place] [address] [phone] * (ABNORMAL) RPR (Monitor) with Reflex to??Titer (05/13/2025 11:55 AM EDT) RPR (Monitor) w/Refl Titer REACTIVE( A) NON-REACT MADY [facility] Comment:The RPR is a non-janice ponemal-specific test; therefore,a treponemal- specific confirmatory test should beperformed unless prior syphilis infection has beendocumented for this patient.THIS TEST WAS PERFORMED AT:[employer] [address] [id number] GREGG MD Rapid Plasma Reagin Ab Titer 1:8(A) [facility] Comment:THIS TEST WAS PERFOR MED AT:[employer] [address] [id number] GREGG MD Blood Venous blood specimen / Unknown 05/13/2025 11:55 AM EDT 05/13/2025 1:26 PM EDT us Cuba Rebollar MD LAB BLOOD ORDERABLES Final Res ult Performing Organization Address [facility] Co de Phone Number [facility] [address] [place] [phone] [phone] * HIV-1/2 Antigen and Antibodies, Fourth Generation, with Reflexes (05/13/2025 11:55 AM EDT) HIV AB/AG Nonreactive Nonreactive [facility] Comment:HIV-1 p24 Ag and/or HIV-1/HIV-2 Ab not detected.A test result that is nonreactive does not exclude thepossibility of exposure to or infection with HIV-1 and/orHIV-2. Nonreactive results in this assay for individualswith prior exposure to HIV-1 and/or HIV-2 may be due toantigen and antibody levels that are below the limit ofdetection of this assay.The [employer] HIV Ag/Ab Combo assay result andsupplemental assay results should be interpreted inconjunction with the patient's clinical presentation,history and other laboratory results. If the results areinconsistent with clinical evidence, additional testing issuggested to confirm the result. Blood Venous blood specimen / Unknown 05/13/2025 11:55 AM EDT 05/13/2025 1:28 PM EDT us Cuba Rebollar MD LAB BLOOD ORDERABLES Final Res ult Performing Organization Address [facility] Co de Phone Number [facility] [address] [place] [phone] * Hepatitis B Surface Antibody, Qualitative (05/13/2025 11:55 AM EDT) ~Hepatitis B Surface Antibody REACTIVE Nonreactive [facility] Comment:REACTIVE: > 11.99 mI U/mL Blood Venous blood specimen / Unknown 05/13/2025 11:55 AM EDT 05/13/2025 1:28 PM EDT us Cuba Rebollar MD LAB BLOOD ORDERABLES Final Res ult Performing Organization Address [facility] Co de Phone Number [facility] [address] [place] [phone] * (ABNORMAL) Basic Metabolic Panel (05/13/2025 11:55 AM EDT) Pathologist [facility] Sodium 143 135 - 145 mmol/L [facility] Potassium 4.0 3.3 - 5.1 mmol/L [facility] Chloride 108 96 - 108 mmol/L [facility] Carbon Dioxide 28 22 - 29 mmol/L [facility] Anion Gap 11(L) 12 - 20 [facility] Urea Nitrogen (BUN) 18(H) 9 - 16 mg/dL [facility] Creatinine, Serum 0.99 0.5 - 1.4 mg/dL [facility] Estimated Glomerular Filt Rate >60 [facility] Comment:Chronic Kidney Disea se: Estimated GFR < 60 mL/min/1.02c5Swfcmp Kidney Disease: Estimated GFR < 15 mL/min/1.73m2 Glucose 72 60 - 115 mg/dL [facility] Calcium 9.4 8.4 - 10.2 mg/dL [facility] Blood Venous blood specimen / Unknown 05/13/2025 11:55 AM EDT 05/13/2025 1:28 PM EDT us Cuba Rebollar MD LAB BLOOD ORDERABLES Final Res ult [facility] [address] [place] [address] [phone] from Last [address] [place] [address] [place] [address] [id number]
[2025-06-12 02:28] LABS: Trichomonas vag. RNA Ur Male NOT DETECTED (NOT DETECTED)
== END 2025-06-10 13:38 | disposition home or self-care (01) ==
LOC: HO.HHCL 13:37
PROVIDERS: PCP Emergency Medicine; Visit Provider Emergency Medicine
DX: F11.20 Opioid dependence, uncomplicated (principal)
CPT/HCPCS: 36415; 80076; 87661